=== PATIENT | male | born 1975 | race American Indian/Alaskan Native ===

== ENCOUNTER 2017-10-24 19:46 | Emergency (ER) | payer SELFPAY ==
--- NOTE | 2017-10-24 21:46 | XRay Report ---
FINAL REPORT EXAM: XR FOOT 3+V RT HISTORY: right foot swollen and painful TECHNIQUE: 3 views of right foot. PRIORS: None. FINDINGS: No apparent fracture or dislocation. Joint spaces maintained. Mild soft tissue edema in the dorsal forefoot. IMPRESSION: 1. No acute osseous abnormality. 2. Mild soft tissue edema.
[2017-10-24 23:26] LABS: Bilirubin,Urine NEG (Negative); Blood,Urine NEG (Negative); Color,Urine Yellow (Yellow); Mucus,Urine FEW /HPF; Protein,Urine <15 mg/dL mg/dL (Negative); Urobilinogen,Urine < 2.0 mg/dL (<2.0)
--- NOTE | 2017-10-25 02:39 | Emergency Department Report ---
ED Extremity Problem HPI - General Chief complaint: Extremity Injury, Lower Stated complaint: RIGHT FOOT PAIN Time Seen by Provider: 10/25/17 01:15 Source: patient Mode of arrival: Ambulatory Limitations: No Limitations - History of Present Illness Initial comments: Patient reports that he noticed right foot started swelling in his ankle and heel area then 2 days ago the swelling moved down his entire right foot including toes. He said when he drives his aggravates his foot. Pain is 10 out of 10 to right foot better with rest and worse with movement or walking. Patient reports that his right foot started swelling in in the ankle/heel area 2 days ago. He said the swelling is now in his entire foot and toes. Patient said he drove 5 hours out of town and 5 hours back. Denies any history of clot in his lungs or in his legs. Denies any shortness of breath or chest pain. Denies any clotting disorder or any history of blood clots in his family. Denies any swelling in his legs. He said he drove 5 hours back and forth after he noticed swelling and it got more swollen. He is also complaining that he is having some pain with urination for the last 3 months. States he is urinating more often and has more urgency. Patient does not have a primary care physician. Denies any fever or chills. Denies any abdominal or back pain. Denies any penile discharge and has no concerns for STDs. Denies any recent weight loss or any increased thirst. Denies any history of diabetes. MD Complaint: extremity pain, extremity swelling Onset/Timin -: days(s) Location: right, lower extremity (right foot) History of Same: Yes (patient said he had the same issue 2 years ago but it went away) -: No myalgia, Yes arthralgia, No fever, No associated dyspnea, No associated chest pain Radiation: none Severity scale (0 -10): 10 Quality: aching Consistency: constant Improves with: immobilization, rest Worsens with: weight bearing, walking, palpation Associated Symptoms: arthralgias. denies: chest pain, fever, myalgias, rash - Related Data Previous Rx's Medication Instructions Recorded Last Taken Type Ibuprofen [Motrin] 800 mg PO Q8HR PRN #15 tablet 10/25/17 Unknown Rx Allergies Allergy/AdvReac Type Severity Reaction Status Date / Time No Known Allergies Allergy Unverified 10/24/17 19:58 ED Review of Systems ROS: Stated complaint: RIGHT FOOT PAIN Other details as noted in HPI Comment: All other systems reviewed and negative Constitutional: no symptoms reported Respiratory: no symptoms reported Cardiovascular: denies: chest pain, palpitations, dyspnea on exertion, edema, syncope, paroxysmal nocturnal dyspnea Endocrine: denies: excessive sweating, flushing, intolerance to cold, intolerance to heat, increased hunger, increased thirst, increased urine, unexplained weight gain, unexplained weight loss Gastrointestinal: denies: abdominal pain, nausea, vomiting, diarrhea, constipation, hematemesis, melena, hematochezia Genitourinary: urgency, dysuria. denies: frequency, hematuria, discharge, testicular pain, testicular mass Musculoskeletal: joint swelling, arthralgia. denies: back pain, myalgia Skin: denies: rash Neurological: denies: headache, numbness, paresthesias, confusion, abnormal gait , vertigo ED Past Medical Hx - Past Medical History Previous Medical History?: No - Surgical History Past Surgical History?: No - Family History Family history: no significant - Social History Smoking Status: Never Smoker Substance Use Type: None - Medications Home Medications: Home Medications Medication Instructions Recorded Confirmed Last Taken Type Ibuprofen [Motrin] 800 mg PO Q8HR PRN #15 tablet 10/25/17 Unknown Rx ED Physical Exam - General Limitations: No Limitations General appearance: alert, in no apparent distress - Head Head exam: Present: atraumatic, normocephalic, normal inspection, other (normal exam) - Eye Eye exam: Present: normal appearance, PERRL, EOMI Pupils: Present: normal accommodation - ENT ENT exam: Present: normal exam, normal orophraynx, mucous membranes moist - Neck Neck exam: Present: normal inspection, full ROM. Absent: tenderness, lymphadenopathy - Respiratory Respiratory exam: Present: normal lung sounds bilaterally. Absent: respiratory distress, chest wall tenderness - Cardiovascular Cardiovascular Exam: Present: regular rate, normal rhythm, normal heart sounds - GI/Abdominal GI/Abdominal exam: Present: soft, normal bowel sounds. Absent: distended, tenderness, guarding, rebound, rigid, organomegaly, mass, bruit, pulsatile mass , hernia - Extremities Exam Extremities exam: Present: normal inspection, full ROM (painful with moving toes of right foot.), tenderness (right foot), normal capillary refill, pedal edema (right foot ), joint swelling (right foot), other (no clubbing or cyanosis. +2 pulses all extremities. Patient has swelling to right foot including toes. Mild tenderness to palpate. No neurovascular compromise. +5 strength in all extremities. No laceration, contusion or abrasions to extremities.). Absent: calf tenderness - Expanded Lower Extremity Exam Right Hip exam: Present: normal inspection, full ROM, pelvic stability. Absent: tenderness, swelling, abrasion, laceration, ecchymosis, deformity, crepidus, dislocation, erythema, external rotation, internal rotation, shortening Upper Leg exam: Present: normal inspection, full ROM. Absent: tenderness, swelling, abrasion, laceration, ecchymosis, deformity, crepidus, dislocation, erythema Knee exam: Present: normal inspection, full ROM, full knee extension. Absent: tenderness, swelling, abrasion, laceration, ecchymosis, deformity, crepidus, dislocation, erythema, effusion, pain w/ pronation/supination, posterior draw sign, pain/laxity with valgus, pain/laxity with varus Lower Leg exam: Present: normal inspection, full ROM. Absent: tenderness, swelling, abrasion, laceration, ecchymosis, deformity, crepidus, dislocation, erythema, palpable cord, Eugenio's sign Ankle exam: Present: normal inspection, full ROM. Absent: tenderness, swelling , abrasion, laceration, ecchymosis, deformity, crepidus, dislocation, erythema Foot/Toe exam: Present: full ROM (painful with active range of motion), tenderness (dorsal aspect of right foot), swelling (dorsal aspect of right foot) . Absent: normal inspection ( to right foot), abrasion, laceration, ecchymosis , deformity, crepidus, dislocation, erythema, amputation, puncture wound, foreign body, calcaneal tenderness, tenderness at base of 5th metatarsal, nail avulsion, subungual hematoma Neuro vascular tendon exam: Present: no vascular compromise, significant pain with passive ROM of distal joint. Absent: pulse deficit, abnormal cap refill, motor deficit, sensory deficit, tendon deficit, extremity cold to touch, pallor , abnormal 2-point discrimination, decreased fine/light touch, foot drop, peroneal nerve deficit Gait: Positive: observed and limited by pain - Back Exam Back exam: Present: normal inspection, full ROM, other (ambulates without any difficulties). Absent: tenderness, CVA tenderness (R), CVA tenderness (L), muscle spasm, paraspinal tenderness, vertebral tenderness, rash noted - Neurological Exam Neurological exam: Present: alert, oriented X3, normal gait, reflexes normal. Absent: motor sensory deficit - Psychiatric Psychiatric exam: Present: normal affect, normal mood - Skin Skin exam: Present: warm, dry, intact, normal color. Absent: rash ED Course Vital Signs 10/24/17 20:00 Temperature 97.9 F Pulse Rate 90 Respiratory 16 Rate Blood Pressure 144/90 O2 Sat by Pulse 98 Oximetry - Reevaluation(s) Reevaluation #1: 10/25/17 04:16 Patient given Motrin 800 mg emergency room for right foot pain which relieved his pain. - Orthopedic Splinting/Casting Injury #1 Side: right Lower Extremity Injury Location: foot Lower Extremity Immobilizer: Connor wrap Additional Comments: Normal neurovascular check status post Connor wrap ED Medical Decision Making - Lab Data Lab Results 10/24/17 10/24/17 10/25/17 Range/Units 20:37 23:01 02:57 D-Dimer 158.70 (0-234) ng/mlDDU POC Glucose 82 (70-105) Urine Color Yellow (Yellow) Urine Turbidity Clear (Clear) Urine pH 8.0 H (5.0-7.0) Ur Specific [place] 1.017 (1.003-1.030) Urine Protein <15 mg/dl (Negative) mg/dL Urine Glucose (UA) Neg (Negative) mg/dL Urine Ketones Neg (Negative) mg/dL Urine Blood Neg (Negative) Urine Nitrite Neg (Negative) Urine Bilirubin Neg (Negative) Urine Urobilinogen < 2.0 (<2.0) mg/dL Ur Leukocyte Esterase Neg (Negative) Urine WBC (Auto) 1.0 (0.0-6.0) /HPF Urine RBC (Auto) 3.0 (0.0-6.0) /HPF U Epithel Cells (Auto) < 1.0 (0-13.0) /HPF Urine Mucus Few /HPF Urine culture pending - Radiology Data Radiology results: report reviewed X-ray of right foot reveals no acute osseous abnormality. Mild soft tissue edema. Joint spaces maintained. No apparent fracture or dislocation. - Medical Decision Making ED course: Patient here complaining of right foot swelling 2 days and reported that he drove 5 hours back and forth for a total of 10 hours after he noticed swelling. He said that he was playing soccer and does not remember injuring himself. Patient does not have any symptoms of DVT but since he has traveled for 10 hours back and forth and having swelling to right foot I decided to do a d-dimer which came back at normal level. Patient does not have any swelling in his calf or doesn't have any calf pain. X-ray finding shows patient with soft tissue swelling to right foot without any bony abnormality. I discussed the patient that he has a foot sprain. I also discussed x-ray results and lab results with him. He voices understanding of diagnosis and rice therapy. Patient was given Motrin 800 mg emergency room for pain. He has no signs of cellulitis. Patient discharged home in stable condition with prescription for Motrin and rice therapy and to follow-up with [facility] as he does not have a primary care physician and also orthopedic doctor. Critical care attestation.: If time is entered above; I have spent that time in minutes in the direct care of this critically ill patient, excluding procedure time. ED Disposition Clinical Impression: Arthralgia of left foot Sprain of foot, left Qualifiers: Encounter type: initial encounter Qualified Code(s): S93.602A - Unspecified sprain of left foot, initial encounter Disposition: DC-01 TO HOME OR SELFCARE Is pt being admited?: No Does the pt Need Aspirin: No Condition: Stable Instructions: Arthralgia (ED), Foot Sprain (ED), RICE Therapy (ED) Additional Instructions: Please follow rice therapy instructions in discharge instruction paperwork Follow up at [facility] in 2-3 days Take medication as prescribed Rest and elevate affected area for 72 hours Follow-up with orthopedic doctor as instructed Prescriptions: Ibuprofen [Motrin] 800 mg PO Q8HR PRN #15 tablet PRN Reason: foot pain and sprain Referrals: [facility] [Outside] - 2-3 Days LUDY NGUYEN MD [Staff Physician] - 2-3 Days Forms: Work/School Release Form(ED)
[2017-10-25] MEDS ORDERED: MOTRIN PO ONE (02:46)
[2017-10-25 04:59] VITALS: BP 133/92
== END 2017-10-25 04:48 | disposition home or self-care (01) ==
LOC: ED 19:46
DX: S93.602A Unspecified sprain of left foot, initial encounter (principal); R30.0 Dysuria; X58.XXXA Exposure to other specified factors, initial encounter; Y93.89 Activity, other specified; Y92.89 Other specified places as the place of occurrence of the external cause; Y99.8 Other external cause status
CPT/HCPCS: 36415; 81001; 82962; 85379; 87086